=== PATIENT | female | born 1965 | race Caucasian/White ===

== ENCOUNTER 2022-06-27 17:24 | Emergency (ER) | payer BC ==
[2022-06-27 19:16] VITALS: BP 106/59; PULSE 86; RESP 16; TEMP 98.1
--- NOTE | 2022-06-27 19:41 | XR ---
EXAMINATION TYPE: XR knee complete LT DATE OF EXAM: 06/27/2022 CLINICAL HISTORY: Pain. TECHNIQUE: Three views of the left knee are obtained. COMPARISON: None. FINDINGS: There is no acute fracture/dislocation evident in the left knee. Moderate to severe tricom partment joint space loss with mild to moderate spurring. The overlying soft tissue appears unremark able. IMPRESSION: As above.
[2022-06-27] MEDS ORDERED: HYDROcodone/APAP 5-325MG 1 EACH TAB PO STA (20:39)
[2022-06-27] MEDS ORDERED: ACET/COD 300 MG/30 MG STARTER PACK 6 TAB BTL PO STA (20:40)
--- NOTE | 2022-06-27 20:49 | ED ---
General Adult HPI - General Chief complaint: Extremity Injury, Lower Stated complaint: Dislocated Knee Time Seen by Provider: 06/27/22 20:00 Source: patient, family, RN notes reviewed, old records reviewed Mode of arrival: wheelchair Limitations: physical limitation - History of Present Illness Initial comments: Patient is a 56 year old female with past medical history remarkable for left knee pain, left leg injury with bad arthritis, asthma, thyroid disorder who presents emergency department after sudden onset left knee pain. States she felt a popping sensation when she stood up from the toilet earlier today. Has been seeing Dr. Rodgers outpatient for the patient's knee. Received injections earlier this week. Has a history of left lower extremity comminuted fracture. Denies any other injury. Uncertain if she dislocated it or injured it. Does have a known MCL injury in the left knee. Presents for further evaluation at this time. - Related Data Allergies Allergy/AdvReac Type Severity Reaction Status Date / Time bee venom protein (honey bee) Allergy Unknown Verified 06/27/22 19:13 Childhood Latex, Natural Rubber Allergy Unknown Verified 06/27/22 19:13 Childhood shellfish derived Allergy Unknown Verified 06/27/22 19:13 Childhood Review of Systems ROS Statement: Those systems with pertinent positive or pertinent negative responses have been documented in the HPI. Review of Systems: CONST: Denies fever EYES: Denies blurry vision ENT: Denies nasal congestion C/V: Denies Chest pain RESP: Denies shortness of breath GI: Denies abdominal pain : Denies dysuria SKIN: Denies rash. MSK: Endorses knee pain NEURO: Denies headache ROS Other: All systems not noted in ROS Statement are negative. Past Medical History Past Medical History: Asthma, Thyroid Disorder History of Any Multi-Drug Resistant Organisms: None Reported Past Surgical History: Bariatric Surgery, Cholecystectomy, Hysterectomy, Orthopedic Surgery, Tonsillectomy Additional Past Surgical History / Comment(s): bladder, foot X13, Past Psychological History: Depression Smoking Status: Never smoker Past Alcohol Use History: Occasional Past Drug Use History: None Reported General Exam - General Exam Comments Initial Comments: General: Appears in no acute distress. HEAD: Normal with no signs of head trauma. EYES: EOMI ENT: Hearing grossly intact RESPIRATORY:. No respiratory distress. C/V: Regular rate and rhythm. Peripheral pulses 2+ intact throughout. ABD: Nondistended EXT: Reduced range of motion of the left knee. Pain on full extension but is able to hold the knee in full extension. Able to flex. Has some bilateral joint line tenderness to palpation. Scott's test negative. Neurovascular i ntact. SKIN: No rashes or lesions observed on exposed skin. NEURO: Alert and oriented 4. No focal deficits. Limitations: physical limitation Course Vital Signs 06/27/22 19:13 Temperature 98.1 F Pulse Rate 86 Respiratory 16 Rate Blood Pressure 106/59 O2 Sat by Pulse 98 Oximetry Medical Decision Making - Medical Decision Making Based on the patient's presentation and physical exam, I'm concerned for left knee injury. I evaluated the patient a TPA room. X-rays already been obtained. The x-ray as interpreted by myself reveals no acute traumatic injury. Patient does have osteoarthritis. No acute fracture dislocation. No soft tissue i njury. I discussed the findings with the patient as well as her family. I do believe it is safe for her to be discharged home with follow-up with her orthopedic surgeon. She was in agreement this plan. She'll be sent home with crutches, work note. She'll be given a [place] for pain control. She'll also be placed in a knee immobilizer. Vital signs within acceptable limits. Discussed rest, icing. I instructed the patient to follow up with their PCP in the next 1-3 days. I explained that the patient should return to the emergency department if they experience any worsening symptoms. Strict return precautions were discussed with the patient. The patient expressed understanding of these instructions. I answered all questions that the patient had. The patient was discharged home in good condition with their prescriptions and follow up information. Disposition Clinical Impression: Left knee sprain Disposition: HOME SELF-CARE Condition: Fair Instructions (If sedation given, give patient instructions): Knee Sprain (ED), Knee Pain (ED) Is patient prescribed a controlled substance at d/c from ED?: No Referrals: Misha Hanson NPC [Primary Care Provider] - 1-2 days Time of Disposition: 20:35
== END 2022-06-27 21:52 | disposition home or self-care (01) ==
LOC: EC 17:24
DX: S83.92XA Sprain of unspecified site of left knee, initial encounter (principal); F32.A Depression, unspecified; J45.909 Unspecified asthma, uncomplicated; Z91.030 Bee allergy status; Z91.040 Latex allergy status; Z91.013 Allergy to seafood; X58.XXXA Exposure to other specified factors, initial encounter
CPT/HCPCS: 73562; 99283; L1830

== ENCOUNTER → 2022-12-11 | Outpatient (CLI) | payer BC ==
[2022-12-11 11:25] LABS: INR 0.9 (<1.2); Partial Thromboplastin Time 22.9 sec (22.0-30.0); Prothrombin Time 9.7 sec (9.0-12.0)
[2022-12-11 12:10] LABS: Appearance,Urine Clear (Clear); Bilirubin,Urine Negative (Negative); Blood,Urine Negative (Negative); Color,Urine Yellow; Glucose,Urine (UA) Negative (Negative); Ketones,Urine Negative (Negative); Leukocyte Esterase,Urine Negative (Negative); Nitrite,Urine Negative (Negative); Protein,Urine Negative (Negative)
[2022-12-11 15:54] LABS: HCT 41.3 % (37.2-46.3); HGB 12.9 g/dL (12.0-15.0); MCH 27.4 pg (27.0-32.0); MCHC 31.2 g/dL (32.0-37.0); MCV 87.7 fL (80.0-97.0); Mean Platelet Volume 9.3 fL (9.5-12.2); NRBC Per 100 WBC 0 /100 WBCS (0.0-0.0); Platelet Count 284 X 10*3/uL (140-440); RBC 4.71 X 10*6/uL (4.10-5.20); RDW 14.7 % (11.5-14.5); WBC 5.43 X 10*3/uL (4.50-10.00)
[2022-12-11 15:56] LABS: Albumin 4.2 g/dL (3.8-4.9); Albumin/Globulin Ratio 2.16 (1.60-3.17); Anion Gap 9.8 mmol/L (10.00-18.00); BUN/Creat Ratio 14.51 Ratio (12.00-20.00); Blood Urea Nitrogen 11.2 mg/dL (9.0-27.0); Calcium 9.1 mg/dL (8.7-10.3); Carbon Dioxide 28.4 mmol/L (20.0-27.5); Globulin 1.9 g/dL (1.6-3.3); Non-African American GFR(CKD) 85.4 (60.0-200.0); Potassium 4.9 mmol/L (3.5-5.5); Total Bilirubin 0.3 mg/dL (0.30-1.20); Total Protein 6.1 g/dL (6.2-8.2)
== END | disposition home or self-care (01) ==
LOC: LABPAT 09:42
PROVIDERS: ATTEND Orthopaedic Surgery
DX: Z01.818 Encounter for other preprocedural examination (principal); M17.12 Unilateral primary osteoarthritis, left knee; R00.2 Palpitations; R94.31 Abnormal electrocardiogram [ECG] [EKG]
CPT/HCPCS: 36415; 80053; 81003; 85027; 85610; 85730; 87070; 93005

== ENCOUNTER 2023-01-08 14:15 | Day surgery (SDC) | payer BC ==
[2023-01-02 12:48] VITALS: BMI 37.9
[~2023-01-08 14:15] MED LIST: ACETAMINOPHEN TAB 500 MG TAB PO PRN; DEXAMETHASONE SOD PHOSPHATE 10 MG/ML 1 ML VIAL IV PRN; DOCUSATE 100 MG CAP PO PRN; FAMOTIDINE 20 MG/2 ML VIAL IVP PRN; HYDROmorphone 0.5 MG/0.5 ML SYRINGE IVP PRN; KETOROLAC 15 MG/ML 1 ML VIAL IVP PRN; LIDOCAINE 1% (10MG/ML) FOR IV START INTRADERMA PRN; ONDANSETRON 4 MG/2 ML VIAL IVP PRN; ROPIVACAINE/EPI/CLONIDINE/KET 50 ML SYRINGE MISCELLANE PRN; TRANEXAMIC ACID IN NACL,ISO-OS 1,000 MG in SALINE 1 100ML.BAG IV PRN; TRANEXAMIC ACID IN NACL,ISO-OS 1,000 MG in SALINE 1 100ML.BAG IVPB PRN; oxyCODONE ER 10 MG TAB.ER.12H PO PRN
[2023-01-08] MEDS: LACTATED RINGERS 1,000 ML IV SCH ×2 (14:41→20:45)
[2023-01-08] MEDS ORDERED: SCOPOLAMINE 1 MG/72 HR PATCH TRANSDERM ONE (14:46)
[2023-01-08] MEDS ORDERED: KETOROLAC 15 MG/ML 1 ML VIAL ONE (14:50)
[2023-01-08] MEDS ORDERED: MIDAZOLAM 2 MG/2 ML VIAL IVP ONE (15:56)
[2023-01-08] MEDS ORDERED: PROPOFOL 10 MG/ML 20 ML VIAL IV ONE (17:40)
[2023-01-08] MEDS ORDERED: LIDOCAINE 2% INJ 20 MG/ML (2 ML VIAL) ONE (17:40)
[2023-01-08] MEDS ORDERED: ROPIVACAINE 5 MG/ML 30 ML VIAL ONE (17:40)
[2023-01-08] MEDS ORDERED: MIDAZOLAM 2 MG/2 ML VIAL ONE (17:40)
[2023-01-08] MEDS ORDERED: DEXAMETHASONE SOD PHOSPHATE 4 MG/ML 1 ML VIAL ONE (17:40)
[2023-01-08] MEDS ORDERED: fentaNYL (PF) 50 MCG/ML 2 ML AMP ONE (17:40)
[2023-01-08] MEDS ORDERED: KETAMINE 10 MG/ML 20 ML VIAL ONE (17:40)
[2023-01-08] MEDS ORDERED: LACTATED RINGERS 1,000 ML IV ONE (18:34)
[2023-01-08] MEDS ORDERED: HYDROmorphone 1 MG/ML 1 ML SYRINGE IVP PRN (20:11)
[2023-01-08] MEDS ORDERED: HYDROmorphone 0.5 MG/0.5 ML SYRINGE IVP PRN ×2 (20:11)
[2023-01-08] MEDS ORDERED: NALOXONE 0.4 MG/ML 1 ML VIAL IV PRN (20:11)
[2023-01-08] MEDS ORDERED: hydrOXYzine pamoate 25 MG CAP PO PRN (20:11)
[2023-01-08] MEDS ORDERED: HYDROcodone/APAP 5-325MG 1 EACH TAB PO PRN (20:11)
--- NOTE | 2023-01-08 20:11 | P.OP ---
Date of Procedure: 01/08/23 Preoperative Diagnosis: Severe left knee osteoarthritis BMI 35.1 Prior left hindfoot fusion Postoperative Diagnosis: Same Procedure(s) Performed: Left total knee arthroplasty Implants: 1. [employer] Triathlon CR Femur Size #4 2. [employer] Triathlon Orestes Tibial Base Size #4 3. [place] Triathlon CS poly Size #9 4. [place] Triathlon all poly patella, Size #29 Anesthesia: regional, spinal Surgeon: Darrin Rodgers Sensory Scientist #1: Chandrakant Slade Estimated Blood Loss (ml): 200 IV fluids (ml): 900 Pathology: none sent Condition: stable Disposition: PACU Indications for Procedure: I met with the patient preoperatively in the office setting and discussed treatment of their symptomatic knee arthritis. They failed a long course of nonsurgical treatment and elected to proceed with an elective total knee replacement. I discussed the potential risks and complications at length and gave them ample time to ask questions. Risks discussed included: risks from anesthesia, superficial site surgical infection, acute and/or chronic periprosthetic joint infection, delayed wound healing, drainage, wound necrosis, instability, stiffness, stiffness requiring manipulation and/or revision surgery, damage to local blood vessels or nerves, aseptic loosening of the implants, extensor mechanism issues including disruption, patellar maltracking, avascular necrosis etc., continued or worsened knee pain, generalized dissatisfaction with surgical outcome, need for revision surgery, an inability to regain preinjury level of function, DVT, PE, other medical complications, and possibly loss of life or limb. The patient voiced their understanding that while these are the most common complications other less common complications are possible. They provided both their verbal and written consent to go forward with surgery. Operative Findings: The patient had full-thickness cartilage loss in the medial, lateral, and patellofemoral joint with multiple peripheral osteophytes and exposed subchondral bone throughout the knee. There was a large clear effusion. Description of Procedure: The patient was identified in preoperative holding and the correct operative extremity was verified and marked with a marker. I reviewed the consent form with the patient at length. All of their questions were answered. The patient was given a block by anesthesia. They were then brought back to the operating room. They were transferred onto the operating room table where a general anesthetic, preoperative antibiotics, and tranexamic acid were administered by anesthesia. A tourniquet was applied to the proximal aspect of the operative extremity. The contralateral extremity was padded under the heel and secured to the operating room table with a nonsterile blue towel and tape. The ipsilateral arm was carefully draped across the patient's chest and secured with a pillow and foam. A post was applied over the lateral aspect of the ipsilateral thigh and a bolster was placed under the ipsilateral foot. I verified that the operative extremity was stable and the knee was flexed to 90. The operative extremity was then placed in a leg pérez, nonsterile drapes were applied, and the extremity was prepped and draped sterilely in the standard sterile fashion. Prior to starting surgery timeout was performed identifying the correct patient, operative extremity, and procedure. The leg was then elevated, exsanguinated with an Esmarch bandage, and the tourniquet was inflated. An anterior midline incision was made sharply with a scalpel. Once I had di ssected deep to the superficial fascial layer medial and lateral flaps were elevated. A medial parapatellar arthrotomy was created. Upon opening the knee joint there were diffuse arthritic changes in all 3 compartments. The anterior horn of the medial meniscus were sharply released and a medial release was performed around the posterior medial corner of the knee to facilitate retractor placement. The fat pad was excised with electrocautery. The patella was found to be severely arthritic and a provisional cut was made with a sagittal saw to facilitate mobilization of the extensor mechanism during the procedure. Remnants of the ACL and PCL were then excised from the notch. 4 mm pins were then placed within the incision in the medial distal femur and proximal tibia. Arrays were applied to the pins and I verified they were completely tightened. The knee was then registered with the [employer] robot and manipulations in implant position were made to balance the knee and opitmize implant position. Using the [employer] robotic saw all cuts were made in accordance with our plan. After all bony fragments had been removed the cuts were verified with the planar probe. The tibia was then subluxed forward and sized. The knee was brought into flexion and a lamina spreader box operator was placed to allow removal of the meniscal remnants both medially and laterally as well as posterior osteophytes. Local anesthetic was then infiltrated around the joint capsule. Trial implants were then placed within the knee. Range of motion and collateral ligament tension was then evaluated. Adjustments in implant size and position were then made accordingly. Once the knee was felt to be appropriately balanced the Dutch pins were removed. The patella was then recut, sized, and punched. A trial patellar button was then placed. With the trial components in place, the patella tracked midline. The femur was then drilled and the trial component removed. The trial tibial component was then appropriately rotated, pinned, and prepared for the keel. All trial components were then removed from the knee. The knee was thoroughly irrigated with pulsatile lavage. Cement was prepared via vacuum mixing in a b owl on the back table. I then hand pressurized cement into the femur and tibia and placed the implants beginning with the tibial base tray and poly liner, femoral component, and finally the patellar button. All extruded cement was removed including from the pin sites. Once the cement had hardened the knee was evaluated one final time with the final polyethylene liner in place. The knee had full extension and flexion and felt stable to varus and valgus stress throughout the arc of motion. The tourniquet was released and with the tourniquet down the patella tracked midline. All bleeders were controlled with electrocautery. The knee was then soaked for 3 minutes with a dilute Betadine soak. The knee was thoroughly irrigated using 3 L of sterile saline and pulsatile lavage. A deep drain was placed. The extensor mechanism was then reapproximated using pop off Vicryl sutures followed by a running barbed suture. The knee was then closed in layers with a 0 strata fix for the deep fascial layer, 2-0 strata fix for the superficial subcutaneous layer and Monocryl and Steri-Strips for the skin. A sterile dressing and drain sponge were applied. I verified that all instrument, sponge, and sharp counts were correct. The patient was then transferred off the operating room table, extubated, and brought to recovery having tolerated the procedure well. Chandrakant Slade PA-C was required as a skilled credit assistant due to the complexity of the procedure for patient positioning, draping, retraction, placement of hardware, and closure of wound. PLAN: The patient can weight-bear as tolerated on the operative extremity. DVT prophylaxis with aspirin 81 mg twice a day based on preoperative risk stratification. Follow-up in the office in 2 weeks for wound check and x-rays of the knee including an AP and lateral.
--- NOTE | 2023-01-08 20:44 | XR ---
EXAMINATION TYPE: XR knee limited LT DATE OF EXAM: 01/08/2023 8:35 PM INDICATION: Patient age:Female; 57 years old; Reason for study: Evaluation for Postop abnormality and alignment; [facility]. COMPARISON: Left knee radiograph 06/27/2022 TECHNIQUE: The Left knee(s) was examined in AP and crosstable lateral projections. FINDINGS: Postsurgical changes from total left knee arthroplasty with distal femoral and proximal t ibial components. Hardware appears intact with appropriate alignment. There is associated soft tissue gas and edema. No acute fracture or dislocation. A drainage catheter is identified in the suprapatel lar soft tissues. IMPRESSION: Postsurgical changes from total left knee arthroplasty. Hardware appears intact with appropriate alig nment.
[2023-01-08] MEDS ORDERED: SENNOSIDES-DOCUSATE SODIUM 1 EACH TAB PO SCH (21:00)
--- NOTE | 2023-01-08 21:03 | P.ANPRN ---
Procedure Note - Anesthesia - Nerve Block Performed Left Adductor Canal Single Time Out Performed: Yes Date of Procedure: 01/08/23 Procedure Start Time: 15:56 Procedure Stop Time: 15:59 Location of Patient: PreOp Indication: Acute Post-Operative Pain, Requested by Surgeon Sedation Type: Sedate with meaningful contact maintained Preparation: Sterile Prep Position: Supine Needle Types: Pajunk Needle Gauge: 21 Ultrasound used to visualize needle placement: Yes Ultrasound used to observe medication spread: Yes Blood Aspirated: No Pain Paresthesia on Injection Noted: No Resistance on Injection: Normal Image Stored and Saved: Yes Events: Uneventful and Well Tolerated (Ropivacaine 0.5% 25 mL plus dexamethasone 4 mg)
--- NOTE | 2023-01-08 21:04 | P.ANPRN ---
Procedure Note - Anesthesia - Nerve Block Performed Left iPack Single Time Out Performed: Yes Date of Procedure: 01/08/23 Procedure Start Time: 16:00 Procedure Stop Time: 16:02 Location of Patient: PreOp Indication: Acute Post-Operative Pain, Requested by Surgeon Sedation Type: Sedate with meaningful contact maintained Preparation: Sterile Prep Position: Supine Needle Types: Pajunk Needle Gauge: 21 Ultrasound used to visualize needle placement: Yes Ultrasound used to observe medication spread: Yes Blood Aspirated: No Pain Paresthesia on Injection Noted: No Resistance on Injection: Normal Image Stored and Saved: Yes Events: Uneventful and Well Tolerated (Ropivacaine 0.5% 25 mL plus dexamethasone 4 mg)
[2023-01-08] MEDS: HYDROcodone/APAP 5-325MG 1 EACH TAB PO PRN (21:30)
[2023-01-08] MEDS: ASPIRIN 81 MG PO SCH (21:30)
[2023-01-09] MEDS: HYDROcodone/APAP 5-325MG 1 EACH TAB PO PRN (06:11)
[2023-01-09 07:29] VITALS: TEMP 97.7
[2023-01-09] MEDS: LACTATED RINGERS 1,000 ML IV SCH ×2 (08:03→08:34)
[2023-01-09] MEDS: ASPIRIN 81 MG PO SCH (08:53)
[2023-01-09] MEDS ORDERED: traMADol 50 MG TAB PO PRN (09:50)
[2023-01-09] MEDS ORDERED: ESCITALOPRAM 10 MG TAB PO SCH (10:00)
[2023-01-09] MEDS ORDERED: PANTOPRAZOLE 40 MG TABLET PO SCH (10:00)
[2023-01-09] MEDS ORDERED: LEVOTHYROXINE 125 MCG TAB PO SCH (10:00)
[2023-01-09 10:53] LABS: Basophils # (A) 0.02 X 10*3/uL (0.00-0.10); Basophils % (A) 0.2 %; Eosinophils # (A) 0.01 X 10*3/uL (0.04-0.35); Eosinophils % (A) 0.1 %; HCT 37.9 % (37.2-46.3); HGB 11.7 g/dL (12.0-15.0); Immature Grans, Automated 0.4 %; Lymphocytes # (A) 0.67 X 10*3/uL (0.90-5.00); Lymphocytes % (A) 7.2 %; MCH 26.8 pg (27.0-32.0); MCHC 30.9 g/dL (32.0-37.0); MCV 86.9 fL (80.0-97.0); Mean Platelet Volume 9.7 fL (9.5-12.2); Monocytes # (A) 0.38 X 10*3/uL (0.20-1.00); Monocytes % (A) 4.1 %; NRBC Per 100 WBC 0 /100 WBCS (0.0-0.0); Neutrophils # (A) 8.25 X 10*3/uL (1.80-7.70); Platelet Count 236 X 10*3/uL (140-440); RBC 4.36 X 10*6/uL (4.10-5.20); RDW 13.8 % (11.5-14.5); WBC 9.37 X 10*3/uL (4.50-10.00)
--- NOTE | 2023-01-09 13:02 | P.DS ---
Providers Expected date of discharge: 01/09/23 Attending physician: Darrin Rodgers Consults: 01/08/23 20:18 Consult Physician Routine Consulting Provider: Misha Hanson Consult Reason/Comments: medical management Do you want consulting provider notified?: Yes Primary care physician: Mishamike Hanson [place] [facility] Course: This is a 57-year-old female who was last seen with complaint of continued left knee pain. The patient has a known history of degenerative arthritis of the left knee and presents to discuss surgical options. After discussion and consideration the patient elects to proceed with total left knee arthroplasty. The patient is seen preoperatively by Misha Hanson, BRENT and cleared for surgery. The patient is admitted to [facility] for total left knee arthroplasty on 01/08/23. The procedures performed without complication or sequelae. She is doing well postoperatively. Vital signs are stable at discharge. Labs are stable at discharge. Patient is examined bedside this morning with Dr. Rodgers. She states her pain is well-controlled at this time. She is ambulating with a walker with minimal assistance. She has passed physical therapy to return home. No new complaints at discharge. On examination, patient is sitting up in bed in no apparent distress. She is alert and oriented 3. On inspection of the left knee, there is a clean, dry, intact surgical dressing in place. No bleeding or drainage to the dressing. Hemovac drain was removed during examination today. Motor and sensory function is intact of the left lower extremity. Left lower extremity is warm and well- perfused with brisk capillary refill distally. Calf is soft and nontender to palpation. The patient is discharged to home with home health care on postop day #1, pending medical clearance. Please see orders and refer to the med rec for accurate list of medications. She should follow-up in the office at [facility] in 2 weeks. Plan - Discharge Summary Discharge Rx Participant: Yes New Discharge Prescriptions: New RX: Aspirin 81 mg PO BID 30 Days #60 tab Docusate [Colace] 100 mg PO BID #60 capsule HYDROcodone/APAP 5-325MG [Avinger 5-325] 1 - 2 tab PO Q6HR PRN 7 Days #32 tab PRN Reason: Pain RX: Omeprazole 40 mg PO DAILY 30 Days #30 cap Continue RX: Montelukast [Singulair] 10 mg PO HS RX: Escitalopram [Lexapro] 10 mg PO DAILY RX: ALPRAZolam [Xanax] 0.25 mg PO DAILY PRN PRN Reason: Anxiety RX: Levothyroxine Sodium 125 mcg PO DAILY RX: traMADol HCL 50 mg PO Q6H PRN PRN Reason: Pain RX: Darifenacin Hydrobromide [Enablex] 15 mg PO DAILY RX: Omeprazole 20 mg PO DAILY Discharge Medication List RX: ALPRAZolam [Xanax] 0.25 mg PO DAILY PRN 01/02/23 [History] RX: Darifenacin Hydrobromide [Enablex] 15 mg PO DAILY 01/02/23 [History] RX: Escitalopram [Lexapro] 10 mg PO DAILY 01/02/23 [History] RX: Levothyroxine Sodium 125 mcg PO DAILY 01/02/23 [History] RX: Montelukast [Singulair] 10 mg PO HS 01/02/23 [History] RX: Omeprazole 20 mg PO DAILY 01/02/23 [History] RX: traMADol HCL 50 mg PO Q6H PRN 01/02/23 [History] Docusate [Colace] 100 mg PO BID #60 capsule 01/09/23 [Rx] HYDROcodone/APAP 5-325MG [Avinger 5-325] 1 - 2 tab PO Q6HR PRN 7 Days #32 tab 01/09/23 [Rx] RX: Aspirin 81 mg PO BID 30 Days #60 tab 01/09/23 [Rx] RX: Omeprazole 40 mg PO DAILY 30 Days #30 cap 01/09/23 [Rx] Follow up Appointment(s)/Referral(s): Darrin Rodgers MD [Medical Doctor] - 2 Weeks Patient Instructions/Handouts: *Surgery [facility] - Scopalamine Patch Instructions Activity/Diet/Wound Care/Special Instructions: Weight bear to tolerance on operative extremity with a walker. Keep operative dressing in place until follow-up in the office. Call the office if dressing becomes saturated or falls off. May shower over dressing. Take pain medications as needed. Take aspirin 81mg twice a day x 4 weeks for blood clot prevention. Follow-up in the office in two weeks at [facility]. Call the office with any questions or concerns, Discharge Disposition: HOME WITH HOME HEALTH SERVICES
[2023-01-09 13:41] VITALS: BP 106/69; PULSE 78; RESP 13
--- NOTE | 2023-01-09 14:07 | P.CONS ---
History of Present Illness - Reason for Consult Consult date: 01/09/23 Medical management, status post left total knee arthroplasty - History of Present Illness This is a 57-year-old female who was admitted under orthopedic services status post left total knee arthroplasty postop day 1. Patient reports she follows with Misha Hanson and the [facility] with a past medical history of asthma, GERD, osteoarthritis, hypothyroidism, anxiety/depression. Patient reports she did undergo presurgical clearance. Patient reports she is having some pain of the left knee and feels numbing is slightly wearing off although was able to work with physical therapy and reports she is probably going home today. Patient's home medications reviewed and resumed as appropriate. Patient is currently afebrile with no reports of chest pain or shortness of breath. Patient is tolerating diet and has been up reporting to the bathroom with passing gas but no bowel movement as of yet. Patient is medically stable for discharge today. Review Of Systems: Constitutional: No fever, no chills, no night sweats. No weight change. No weakness, fatigue or lethargy. No daytime sleepiness. EENT: No headache. No blurred vision or double vision, no loss of vision. No loss of Hearing, no ringing in the ears, no dizziness. No nasal drainage or congestion. No epistaxis. No sore throat. Lungs: No shortness of breath, cough, no sputum production. No wheezing. Cardiovascular: No chest pain, no lower extremity edema. No palpitations. No paroxysmal nocturnal dyspnea. No orthopnea. No lightheadedness or dizziness. No syncopal episodes. Abdominal: No abdominal pain. No nausea, vomiting. No diarrhea. No constipation. No bloody or tarry stools.. No loss of appetite. Genitourinary: No dysuria, increased frequency, urgency. No urinary retention. Musculoskeletal: No myalgias. No muscle weakness, no gait dysfunction, no frequent falls. No back pain. No neck pain. Reporting some left knee pain Integumentary: No wounds, no lesions. No rash or pruritus. No unusual bruising. No change in hair or nails. Neurologic: No aphasia. No facial droop. No change in mentation. No head injury. No headache. No paralysis. No paresthesia. Psychiatric: No depression. No anxiety. No mood swings. Endocrine: No abnormal blood sugars. No weight change. No excessive sweating or thirst. No cold intolerance. PHYSICAL EXAMINATION: GENERAL: The patient is alert and oriented x4, Well developed, well nourished. Obese. HEENT: Pupils are round and equally reacting to light. EOMI. no scleral icterus. No conjunctival pallor. Normocephalic, atraumatic. No pharyngeal erythema. No thyromegaly. CARDIOVASCULAR: S1 and S2 muffled PULMONARY: diminished breath sounds bilaterally with no wheezing or rhonchi noted. ABDOMEN: soft. Nontender on exam. obese. non-distended, normoactive bowel sounds. No palpable organomegaly. MUSCULOSKELETAL: No joint swelling or deformity. EXTREMITIES: No cyanosis, clubbing, or pedal edema. Left knee surgical site is dry and intact currently with an ice pack applied with some swelling and no significant redness noted NEUROLOGICAL: Gross neurological examination did not reveal any focal deficits. Diffuse weakness SKIN: No rashes. Assessment: Status post left total knee arthroplasty, postop day 1 History of osteoarthritis History of asthma, not an exacerbation Gastroesophageal reflux disease history History of anxiety/depression Obesity with BMI of 35.1 GI prophylaxis DVT prophylaxis Full code Plan: Recommend to continue with current medications and management per orthopedic services. Patient has been seen and evaluated by physical therapy and did well plans for going home with support at home. Patient did receive a walker for d ischarge planning. Patient with incentive spirometer recommend continuing to use them bringing home at least 10 times every hour while awake Home medications have been reviewed and resumed and patient encouraged to follow-up with primary care provider Thank you kindly for this consultation. We will continue to follow during hospitalization The impression and plan of care has been dictated by Litzy Basurto, nurse practitioner as directed. Dr. Niels MD I have performed a history and examination and MDM of this patient, discussed the same with the dictator, and agree with the dictator's assessment and plan as written ,documented as a scribe. Based on total visit time, I have performed more than 50% of the visit. Any additional findings or plans will be noted. Past Medical History Past Medical History: Asthma, GERD/Reflux, Osteoarthritis (OA), Thyroid Disorder History of Any Multi-Drug Resistant Organisms: None Reported Past Surgical History: Bariatric Surgery, Bladder Surgery, Cholecystectomy, Hysterectomy, Orthopedic Surgery, Tonsillectomy Additional Past Surgical History / Comment(s): bladder, LT foot X13, Past Anesthesia/Blood Transfusion Reactions: Postoperative Nausea & Vomiting (PONV) Past Psychological History: Anxiety, Depression Smoking Status: Never smoker Past Alcohol Use History: Occasional Past Drug Use History: None Reported - Past Family History Father Family Medical History: Cancer Medications and Allergies Home Medications Medication Instructions Recorded Confirmed Type ALPRAZolam [Xanax] 0.25 mg PO DAILY PRN 01/02/23 01/02/23 History Darifenacin Hydrobromide [Enablex] 15 mg PO DAILY 01/02/23 01/02/23 History Escitalopram [Lexapro] 10 mg PO DAILY 01/02/23 01/02/23 History Levothyroxine Sodium 125 mcg PO DAILY 01/02/23 01/02/23 History Montelukast [Singulair] 10 mg PO HS 01/02/23 01/02/23 History Omeprazole 20 mg PO DAILY 01/02/23 01/02/23 History traMADol HCL 50 mg PO Q6H PRN 01/02/23 01/02/23 History Aspirin 81 mg PO BID 30 Days #60 tab 01/09/23 Rx Docusate [Colace] 100 mg PO BID #60 capsule 01/09/23 Rx HYDROcodone/APAP 5-325MG [[place] 1 - 2 tab PO Q6HR PRN 7 Days #32 01/09/23 Rx 5-325] tab Omeprazole 40 mg PO DAILY 30 Days #30 cap 01/09/23 Rx Allergies Allergy/AdvReac Type Severity Reaction Status Date / Time bee venom protein (honey bee) Allergy Unknown Verified 01/08/23 14:28 Childhood Latex, Natural Rubber Allergy Unknown Verified 01/08/23 14:28 Childhood shellfish derived Allergy Unknown Verified 01/08/23 14:28 Childhood Physical Exam Vitals: Vital Signs Temp Pulse Pulse Resp BP Pulse Ox 01/09/23 07:29 97.7 F 86 15 107/72 92 L 01/09/23 02:16 61 107/71 93 L 01/09/23 00:16 68 108/74 93 L 01/09/23 00:01 67 117/76 01/08/23 23:16 65 110/73 01/08/23 21:00 91 16 110/67 98 01/08/23 20:45 94 16 110/66 98 01/08/23 20:30 94 16 117/55 98 01/08/23 20:15 94 16 106/47 98 01/08/23 20:07 98 F 100 16 113/56 93 L 01/08/23 16:08 78 18 125/60 98 01/08/23 14:33 97.8 F 76 16 124/79 95 Intake and Output 01/08/23 01/09/23 01/09/23 22:59 06:59 14:59 Intake Total 1300 Output Total 200 Balance 1100 Intake: IV 1300 Output: Estimated Blood Loss 200 Other: Voiding Method Bedside Commode Diaper # Voids 1 Weight 98.6 kg Results CBC & Chem 7: 01/09/23 06:29
[2023-01-09] MEDS ORDERED: MONTELUKAST 10 MG TAB PO SCH (21:00)
== END 2023-01-09 14:23 | disposition home health service (06) ==
LOC: OR 14:15 → 4SSUR 20:07 → OR 01-09 14:23
PROVIDERS: ATTEND Orthopaedic Surgery
DX: M17.12 Unilateral primary osteoarthritis, left knee (principal); G89.18 Other acute postprocedural pain; E66.9 Obesity, unspecified; Z68.35 Body mass index [BMI] 35.0-35.9, adult; E03.9 Hypothyroidism, unspecified; F41.9 Anxiety disorder, unspecified; F32.A Depression, unspecified; Z98.1 Arthrodesis status; M25.78 Osteophyte, vertebrae; Z79.890 Hormone replacement therapy; Z79.1 Long term (current) use of non-steroidal anti-inflammatories (NSAID); Z79.899 Other long term (current) drug therapy; Z91.013 Allergy to seafood; Z91.040 Latex allergy status; Z98.890 Other specified postprocedural states
CPT/HCPCS: 27447; S2900; 64447; 64999; 85025